=== PATIENT | female | born 1950 | race Caucasian/White ===

== ENCOUNTER 2020-06-05 16:28 | Emergency (ER) | payer OTHER ==
[~2020-06-05] VITALS: Ht 157.5 cm; Wt 77.3 kg
[2020-06-05] MEDS ORDERED: DIAZ5TAB5 PO (16:53)
[2020-06-05] MEDS ORDERED: LEVE500T53 PO (16:53)
[2020-06-05] MEDS ORDERED: LevETIRAcetam 1,000 MG in DEXTROSE 5%-WATER 100 ML IV ONE (17:15)
[2020-06-05 17:30] LABS: BASOPHILS % (AUTO) 1.2 % (0.0-2.0); EOSINOPHILS % (AUTO) 6.1 % (1.0-6.0); HEMATOCRIT 36.2 % (36-46); HEMOGLOBIN 12.2 g/dL (12.0-16.0); LYMPHOCYTES # (AUTO) 1.3 K/uL (1.0-4.8); LYMPHOCYTES % (AUTO) 27.9 % (22.0-44.0); MEAN CORPUSCULAR HEMOGLOBIN 34.5 pg (26.0-34.0); MEAN CORPUSCULAR HGB CONC 33.9 G/dL (31.0-37.0); MEAN CORPUSCULAR VOLUME 102 fL (80-100); MONOCYTES # (AUTO) 0.3 K/uL (0.1-1.0); MONOCYTES % (AUTO) 5.8 % (2.0-9.0); NEUTROPHILS # (AUTO) 2.7 K/uL (1.8-7.7); PLATELET COUNT (AUTO) 176 K/uL (150-450); RED BLOOD CELL COUNT(AUTO) 3.55 MIL/uL (4.00-5.20); RED CELL DISTRIBUTION WIDTH 13.7 % (11.5-14.5)
[2020-06-05 17:54] LABS: ANION GAP 10 mmol/L (8-16); CALCIUM, TOTAL 8.4 mg/dL (8.8-10.5); CARBON DIOXIDE 26 mmol/L (22-29); CHLORIDE 105 mmol/L (98-107); CREATININE 0.84 mg/dL (0.60-1.30); GLOMERULAR FILTR. RATE CALC > 60 mL/min (>60); GLUCOSE,RANDOM 81 mg/dL (70-110); POTASSIUM 4.1 mmol/L (3.5-5.1); SODIUM SERUM 141 mmol/L (136-145); UREA NITROGEN, BLOOD 20 mg/dL (7-18)
[2020-06-05] MEDS ORDERED: LORazepam 1 MG TABLET PO ONE (18:00)
[2020-06-05 18:01] LABS: ALANINE AMINOTRANSFERASE 171 U/L (12-78); ALBUMIN 3.6 g/dL (3.4-5.0); ALKALINE PHOSPHATASE 163 U/L (46-116); ASPARTATE AMINOTRANSFERASE 108 U/L (15-37); BILIRUBIN,TOTAL 0.2 mg/dL (0.1-1.0); CREATINE KINASE, TOTAL ONLY 72 U/L (26-192); TOTAL PROTEIN, SERUM 7.1 g/dL (6.4-8.2)
[2020-06-05 18:07] VITALS: BP 124/87
[2020-06-05 18:12] LABS: B-TYPE NATRIURETIC PEPTIDE 52 pg/mL (0-100)
== END 2020-06-05 18:39 | disposition home or self-care (01) ==
LOC: EMS 16:34
DX: G40.909 Epilepsy, unspecified, not intractable, without status epilepticus (principal); M25.561 Pain in right knee; F41.9 Anxiety disorder, unspecified; G89.29 Other chronic pain
CPT/HCPCS: 71045; 73564; 80053; 82550; 83880; 84484; 85025; 93005; 96374; 99284; J0712; J7060